=== PATIENT | male | born 1990 | race African-American/Black ===

== ENCOUNTER 2022-12-17 07:19 | Emergency (ER) | payer SELFPAY ==
[2022-12-17 07:28] VITALS: BP 173/109; PULSE 82; RESP 16; TEMP 36.3; O2SAT 95; BMI 27.4
--- NOTE | 2022-12-17 07:36 | CT_ITS ---
The [address] [address] Patient Name: DOMINGUEZ ANDERSON MRN: [id number] date: 1990 Sex: M Assigned Patient Location: ER Current Patient Location: ER Accession/Order Number: [id number] Exam Date: 12/17/2022 07:55 Report Date: 12/17/2022 08:53 At the request of: LINDSEY KUMARI Procedure: CT abdomen pelvis w con EXAM: CT abdomen pelvis w con HISTORY: Umbilical area pain; technologist notes state noticed a lump 3 days ago. COMPARISON: None. TECHNIQUE: Routine CT abdomen/pelvis with intravenous contrast. FINDINGS: Lower chest: Unremarkable. Liver: Lizette's lobe configuration of the liver with the right lobe measuring 18.4 cm in longitudinal dimension. There is a 0.5 cm hypodense lesion posteriorly within the lateral segment of the left lobe of the liver which is too small to further characterize by computed tomography however most commonly is a cyst or a hemangioma. Gallbladder/biliary tree: Unremarkable. Pancreas: There is pancreatic divisum, a variant of normal. The pancreas is otherwise unremarkable. Spleen: Unremarkable. Adrenal glands: Unremarkable. Kidneys: There a few and 0.2 cm nonobstructive calculi within the renal pelvis bilaterally. There are 1.0 cm and 0.9 cm left renal cyst. The left renal vein is retroaortic, a variant of normal. Bowel: There is a moderate amount of stool within the colon. The colon and appendix are unremarkable. There is a small hiatal hernia. The stomach is otherwise unremarkable. The small bowel is normal caliber. The bowel gas pattern is nonobstructive. Inflammation: There is no free air, free fluid or inflammatory reaction. Vasculature: The abdominal aorta and the IVC are unremarkable. Lymphadenopathy: There are no pathologically enlarged lymph nodes within the abdomen/pelvis. Pelvis: Mildly enlarged prostate gland. The urinary bladder is underdistended with circumferential wall thickening which may be related to underdistention or possibly outlet obstruction. Correlation should be made with a urinalysis to exclude the possibility of a cystitis. Osseous: There is a 2.0 x 2.6 x 1.5 cm fat-containing umbilical hernia. There is no osseous abnormality. CT/CT abdomen pelvis w con IMPRESSION: Lizette's configuration of the liver, a variant of normal. There is a 0.5 cm hypodense lesion posteriorly within the lateral segment of the left lobe of the liver which is too small to further characterize by computed tomography however most commonly is a cyst or a hemangioma. Pancreatic divisum, a variant of normal. Few 0.2 cm nonobstructive calculi within the renal pelvis bilaterally. There are 1.0 cm and 0.9 cm left renal cysts. The left renal vein is retroaortic, a normal variant. Nonobstructive bowel gas pattern with a moderate amount of stool within the colon. There is a small hiatal hernia. Mildly enlarged prostate gland. The urinary bladder is underdistended with circumferential wall thickening which may be related to underdistention or possibly outlet obstruction. Correlation should be made with a urinalysis to exclude the possibility of a cystitis. There is a 2.0 x 2.6 x 1.5 cm fat-containing umbilical hernia. Electronically authenticated by: TRI SCHMIDT Date: 12/17/2022 08:53
--- NOTE | 2022-12-17 07:44 | ED.ABDPAIN1 ---
HPI - Abdominal Pain General Chief Complaint: Abdominal Pain Stated Complaint: ABDOMINAL PAIN Time Seen by Provider: 12/17/22 07:33 Source: patient Limitations: no limitations History of Present Illness HPI narrative: 32-year-old male presents for abdominal pain. He states that it's been there for a few days and there is been no trauma. He has not had fever constipation or diarrhea or vomiting. He states that he noticed a bump at his umbilicus that he's never had before. He's never had abdominal surgery. No drainage. Related Data Allergies Allergy/AdvReac Type Severity Reaction Status Date / Time No Known Drug Allergies Allergy Verified 12/17/22 07:32 Review of Systems ROS Narrative A ten point review of systems is negative except as noted above. Exam Narrative Exam Narrative: Nurses note and vital signs reviewed and patient is not hypoxic. General: The patient appears well and in no apparent distress. Patient is resting comfortably on cart. Skin: Warm, dry, no pallor noted. There is no rash noted. Head: Normocephalic, atraumatic Eye: Normal conjunctiva, no drainage Ears, Nose, Mouth, and Throat: oral mucosa is moist. Nares patent. Cardiovascular: Regular Rate and Rhythm Respiratory: Patient is in no distress, no accessory muscle use, lungs are clear to auscultation, no wheezing, rales or rhonchi Back: non-tender GI: nondistended. He has some tenderness adjacent to the umbilicus and to the right of it. there is no erythema or mass or drainage. Musculoskeletal: The patient has no evidence of calf tenderness, no pitting edema, symmetrical pulses noted bilaterally Neurological: A&O, normal speech Psychiatric: Cooperative Constitutional Vital Signs, click to edit/add: Last Vital Signs Temp 97.4 F L 12/17/22 07:28 Pulse 82 12/17/22 07:28 Resp 16 12/17/22 07:28 BP 173/109 H 12/17/22 07:28 Pulse Ox 95 12/17/22 07:28 O2 Del Method Room Air 12/17/22 07:28 Course Vital Signs Vital signs: Vital Signs Temperature 97.4 F L 12/17/22 07:28 Pulse Rate 82 12/17/22 07:28 Respiratory Rate 16 12/17/22 07:28 Blood Pressure 173/109 H 12/17/22 07:28 Pulse Oximetry 95 12/17/22 07:28 Oxygen Delivery Method Room Air 12/17/22 07:28 Temperature 97.4 F L 12/17/22 07:28 Pulse Rate 82 12/17/22 07:28 Respiratory Rate 16 12/17/22 07:28 Blood Pressure 173/109 H 12/17/22 07:28 Pulse Oximetry 95 12/17/22 07:28 Oxygen Delivery Method Room Air 12/17/22 07:28 MDM - Abdominal Pain MDM Narrative Medical decision making narrative: umbilical hernia is identified. He is referred to general surgery. Treatment diagnosis and follow-up were discussed with the patient. Differential Diagnosis Differential diagnosis: Likely abdominal pain, acute appendicitis, constipation, diverticulitis, gastroenteritis and small bowel obstruction Lab Data Attestation: I reviewed the patient's lab results. Labs: Lab Results 12/17/22 Range/Units 07:50 WBC 9.4 (4.0-11.0) 10^3/uL RBC 4.44 L (4.70-6.10) 10^6/uL Hgb 14.6 (14.0-18.0) g/dL Hct 43.8 (42.0-54.0) % MCV 98.6 H (80.0-94.0) fL MCH 32.9 (25.9-34.0) pg MCHC 33.3 (29.9-35.2) g/dL RDW 11.3 (11.0-15.0) % Plt Count 342 (150-450) 10^3/uL MPV 9.3 L (9.5-13.5) fL Neut % (Auto) 66.1 (43.0-75.0) % Lymph % (Auto) 25.9 (20.5-60.0) % [place] % (Auto) 6.6 (1.7-12.0) % Eos % (Auto) 1.0 (0.9-7.0) % Baso % (Auto) 0.3 (0.2-2.0) % Neut # (Auto) 6.2 (1.4-6.5) 10^3/uL Lymph # (Auto) 2.4 (1.2-3.8) 10^3/uL [place] # (Auto) 0.6 (0.3-0.8) 10^3/uL Eos # (Auto) 0.1 (0.0-0.7) 10^3/uL Baso # (Auto) 0.0 (0.0-0.1) 10^3/uL Abs Immat Gran (auto) 0.01 (0.00-0.03) 10^3/uL Imm/Tot Granulo (auto) 0.1 (0.0-0.5) % Sodium 138 (136-145) mmol/L Potassium 3.9 (3.5-5.1) mmol/L Chloride 102 (98-107) mmol/L Carbon Dioxide 28.8 (21.0-32.0) mmol/L Anion Gap 11.1 BUN 17.0 (7.0-18.0) mg/dL Creatinine 0.88 (0.70-1.30) mg/dL Est GFR ( Amer) >60 (>=60) Est GFR (Non-Af Amer) >60 (>=60) BUN/Creatinine Ratio 19.3 Glucose 162 H (74-106) mg/dL Calcium 8.6 (8.5-10.1) mg/dL Imaging Data CT scan - abdomen: Radiologist's impression: Procedure: CT abdomen pelvis w con EXAM: CT abdomen pelvis w con HISTORY: Umbilical area pain; technologist notes state noticed a lump 3 days ago. COMPARISON: None. TECHNIQUE: Routine CT abdomen/pelvis with intravenous contrast. FINDINGS: Lower chest: Unremarkable. Liver: Lizette's lobe configuration of the liver with the right lobe measuring 18.4 cm in longitudinal dimension. There is a 0.5 cm hypodense lesion posteriorly within the lateral segment of the left lobe of the liver which is too small to further characterize by computed tomography however most commonly is a cyst or a hemangioma. Gallbladder/biliary tree: Unremarkable. Pancreas: There is pancreatic divisum, a variant of normal. The pancreas is otherwise unremarkable. Spleen: Unremarkable. Adrenal glands: Unremarkable. Kidneys: There a few and 0.2 cm nonobstructive calculi within the renal pelvis bilaterally. There are 1.0 cm and 0.9 cm left renal cyst. The left renal vein is retroaortic, a variant of normal. Bowel: There is a moderate amount of stool within the colon. The colon and appendix are unremarkable. There is a small hiatal hernia. The stomach is otherwise unremarkable. The small bowel is normal caliber. The bowel gas pattern is nonobstructive. Inflammation: There is no free air, free fluid or inflammatory reaction. Vasculature: The abdominal aorta and the IVC are unremarkable. Lymphadenopathy: There are no pathologically enlarged lymph nodes within the abdomen/pelvis. Pelvis: Mildly enlarged prostate gland. The urinary bladder is underdistended with circumferential wall thickening which may be related to underdistention or possibly outlet obstruction. Correlation should be made with a urinalysis to exclude the possibility of a cystitis. Osseous: There is a 2.0 x 2.6 x 1.5 cm fat-containing umbilical hernia. There is no osseous abnormality. IMPRESSION: Lizette's configuration of the liver, a variant of normal. There is a 0.5 cm hypodense lesion posteriorly within the lateral segment of the left lobe of the liver which is too small to further characterize by computed tomography however most commonly is a cyst or a hemangioma. Pancreatic divisum, a variant of normal. Few 0.2 cm nonobstructive calculi within the renal pelvis bilaterally. There are 1.0 cm and 0.9 cm left renal cysts. The left renal vein is retroaortic, a normal variant. Nonobstructive bowel gas pattern with a moderate amount of stool within the colon. There is a small hiatal hernia. Mildly enlarged prostate gland. The urinary bladder is underdistended with circumferential wall thickening which may be related to underdistention or possibly outlet obstruction. Correlation should be made with a urinalysis to exclude the possibility of a cystitis. There is a 2.0 x 2.6 x 1.5 cm fat-containing umbilical hernia. Electronically authenticated by: TRI SCHMIDT Date: 12/17/2022 08:53 Discharge Plan Discharge Chief Complaint: Abdominal Pain Clinical Impression: Hernia, umbilical Patient Disposition: Home, Self-Care Time of Disposition Decision: 09:09 Condition: Good Mode of Transportation: Private Vehicle Instructions: Umbilical Hernia (ED) Additional Instructions: Follow-up with Dr. Morrison Stand Alone Forms: Portal Instructions Referrals: Physician,Non-Staff, MD [Primary Care Provider] - 1 week
[2022-12-17 08:02] LABS: Basophils Percent Auto 0.3 % (0.2-2.0); Eosinophils Absolute Auto 0.1 10^3/uL (0.0-0.7); Hematocrit 43.8 % (42.0-54.0); Hemoglobin 14.6 g/dL (14.0-18.0); Immature Granulocytes Abs Auto 0.01 10^3/uL (0.00-0.03); Immature Granulocytes Pct Auto 0.1 % (0.0-0.5); Lymphocytes Absolute Auto 2.4 10^3/uL (1.2-3.8); Lymphocytes Percent Auto 25.9 % (20.5-60.0); Mean Corpuscular HGB Conc 33.3 g/dL (29.9-35.2); Mean Corpuscular Hemoglobin 32.9 pg (25.9-34.0); Mean Corpuscular Volume 98.6 fL (80.0-94.0); Mean Platelet Volume 9.3 fL (9.5-13.5); Monocytes Absolute Auto 0.6 10^3/uL (0.3-0.8); Monocytes Percent Auto 6.6 % (1.7-12.0); Neutrophils Absolute Auto 6.2 10^3/uL (1.4-6.5); Neutrophils Percent Auto 66.1 % (43.0-75.0); Platelet Count 342 10^3/uL (150-450); Red Blood Count 4.44 10^6/uL (4.70-6.10); Red Cell Distribution Width 11.3 % (11.0-15.0); White Blood Count 9.4 10^3/uL (4.0-11.0)
[2022-12-17 08:24] LABS: Anion Gap 11.1; BUN Creatinine Ratio 19.3; Calcium 8.6 mg/dL (8.5-10.1); Carbon Dioxide 28.8 mmol/L (21.0-32.0); Chloride 102 mmol/L (98-107); Estimated GFR (African America >60 (>=60); Estimated GFR (Non-African Ame >60 (>=60); Glucose 162 mg/dL (74-106); Potassium 3.9 mmol/L (3.5-5.1); Sodium 138 mmol/L (136-145)
== END 2022-12-17 09:17 | disposition home or self-care (01) ==
PROVIDERS: Emergency Provider Emergency Medicine
DX: K42.9 Umbilical hernia without obstruction or gangrene (principal)
CPT/HCPCS: 36415; 74177; 80048; 85025; 99284; Q9967

== ENCOUNTER 2023-04-30 10:53 | Emergency (ER) | payer MEDICAID, SELFPAY ==
[2023-04-30 10:56] VITALS: BP 160/118; PULSE 76; RESP 18; TEMP 36.8; O2SAT 97; BMI 22.8
[2023-04-30 11:43] LABS: SARS-CoV-2 Ag NEGATIVE (NEGATIVE)
[2023-04-30 11:44] VITALS: BP 166/100; PULSE 78; RESP 18; O2SAT 98
[2023-04-30 11:44] LABS: Internal Control Within Normal Limits; Strep A Antigen Screen Negative
--- NOTE | 2023-04-30 12:21 | ED_ITS ---
HPI - General Adult General Chief complaint: Upper Respiratory Infection Stated complaint: SORE THROAT Time Seen by Provider: 04/30/23 11:52 Source: patient Mode of arrival: walk-in History of Present Illness HPI narrative: Patient is a 32-year-old male who is presenting to the ER today with chief complaint of sore throat, sinus headache, sinus congestion, and not feeling well since last evening. 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 Patient did not go to work last night. Patient came into the ER today. Patient feels much better today after resting and sleeping last night. Patient was asking nursing staff for work note. Patient has no chest pain, shortness of breath, abdominal pain, nausea, vomiting, or any other significant complaints. All systems are negative except as noted/marked. All systems reviewed and otherwise negative. Nurses note and vital signs reviewed and patient is not hypoxic. General: The patient appears well and in no apparent distress. Patient is resting comfortably on cart. Patient is not toxic, lethargic, or listless Skin: Warm, dry, no pallor noted. There is no rash noted. No petechiae, purpura. Head: Normocephalic, atraumatic, patient has no bilateral cervical lymphadenopathy Eye: Normal conjunctiva, no drainage, EOMI. PERRL Ears, Nose, Mouth, and Throat: oral mucosa is moist. No posterior pharyngeal erythema, petechiae, exudate. Mild sinus congestion. No unilateral swelling. No acute pathology. No trismus. Nares patent. Mouth without vesicles. Cardiovascular: Regular Rate and Rhythm, no murmur, gallop, rub Respiratory: Patient is in no distress, no accessory muscle use, lungs are clear to auscultation, no wheezing, rales or rhonchi Back: non-tender, GI: no tenderness to palpation, Musculoskeletal: Patient has full range of motion of all of the extremities, no motor, sensory, or focal neurological deficits Neurological: A&O x4, normal speech Psychiatric: Cooperative Related Data Home Medications Medication Instructions Recorded Confirmed No Known Home Medications 04/30/23 04/30/23 Allergies Allergy/AdvReac Type Severity Reaction Status Date / Time No Known Drug Allergies Allergy Verified 12/17/22 07:32 Exam Constitutional Vital Signs, click to edit/add: Last Vital Signs Temp 98.2 F 04/30/23 10:56 Pulse 78 04/30/23 11:44 Resp 18 04/30/23 11:44 BP 166/100 H 04/30/23 11:44 Pulse Ox 98 04/30/23 11:44 O2 Del Method Room Air 04/30/23 10:56 Course Vital Signs Vital signs: Vital Signs Temperature 98.2 F 04/30/23 10:56 Pulse Rate 76 04/30/23 10:56 Respiratory Rate 18 04/30/23 10:56 Blood Pressure 160/118 H 04/30/23 10:56 Pulse Oximetry 97 04/30/23 10:56 Oxygen Delivery Method Room Air 04/30/23 10:56 Temperature 98.2 F 04/30/23 10:56 Pulse Rate 78 04/30/23 11:44 Respiratory Rate 18 04/30/23 11:44 Blood Pressure 166/100 H 04/30/23 11:44 Pulse Oximetry 98 04/30/23 11:44 Oxygen Delivery Method Room Air 04/30/23 10:56 Medical Decision Making MDM Narrative Medical decision making narrative: Patient rapid strep was negative. Patient states he feels much better today than he did yesterday. Patient has evidence of sinus congestion. Education on discharge paperwork was done along at bedside on treating symptoms at home. Patient is using a nasal spray. Patient is using allergy medication as well. Patient looks well. No questions at discharge. Lab Data Labs: Lab Results 04/30/23 Range/Units 11:07 SARS-CoV-2 Ag (CV2AG) Negative (NEGATIVE) Streptococcus Screen Negative Discharge Plan Discharge Chief Complaint: Upper Respiratory Infection Clinical Impression: Sinus congestion, Sore throat Patient Disposition: Home, Self-Care Condition: Fair Prescriptions / Home Meds: No Action No Known Home Medications Instructions: Pharyngitis (ED), Cold Symptoms (ED), How to Use Nasal [place] (ED) Additional Instructions: Increase fluids at home, Gatorade, Powerade, or water. Alternate using DayQuil, NyQuil, and Flonase. At Mucinex as well as needed. Alternate Tylenol and Motrin every 4 hours to help with fever control, body aches or joint pain. Use [id number] vitamin C, vitamin D3, and zinc to help fight infection and help with her immune system. Stand Alone Forms: Work/School Release, Portal Instructions Referrals: Physician,Non-Staff, MD [Primary Care Provider] - 1 week
== END 2023-04-30 12:26 | disposition home or self-care (01) ==
PROVIDERS: Emergency Provider Emergency Medicine
DX: J02.9 Acute pharyngitis, unspecified (principal); R09.81 Nasal congestion; Z20.822 Contact with and (suspected) exposure to COVID-19
CPT/HCPCS: 87070; 87811; 87880; 99283

== ENCOUNTER 2024-08-21 11:48 | Emergency (ER) | payer MEDICAID, SELFPAY ==
[2024-08-21 11:52] VITALS: PULSE 77; TEMP 37.2; O2SAT 96; BMI 24.3
--- OUTSIDE RECORDS SUMMARY | 2024-08-21 11:58 | XMS_ITS | Clinical Summary ---
Author Organization [facility] Address [id number] [address] [place] [address] Care Team Providers Care Audit Control Clerk Name Role Phone Ricki Minor PA-C Primary Care Provider Allergies No known active allergies Medications ibuprofen (ADVIL,MOTRIN) 200 mg tablet Take 1 tablet (200 mg total) by mouth every 6 (six) hours as needed for pain. 400mg as needed Active meloxicam (MOBIC) 15 mg tablet Take 1 tablet (15 mg total) by mouth in the morning. 30 tablet 1 06/16/2022 Active Active Problems Problem Noted Date Diagnosed Date Lumbar spondylosis 06/16/2022 Cervical spondylosis without myelopathy 06/17/19 23 Immunizations Immunization Administration Dates Next Due Tdap 12/20/2021 Social History Tobacco Use Types Packs/Day Years Used Date Smoking Tobacco: Every Day Cigarettes Smokeless Tobacco: Never Tobacco Cessation:Ready to Q uit: Not Asked; Counseling Given: Not Answered Alcohol Use Standard Drinks/Week Comments Yes 0 (1 standard drink = 0.6 oz pur e alcohol) socially Childcare Answer Date Recorded Childcare Unknown 08/29/2018 Employment Answer Date Recorded Employment Unknown 08/29/2018 Hunger Screening Answer Date Recorded Within the past 12 months we worried whether our food would run out before we got money to buy more. Never True 06/16/2022 Within the past 12 months th e food we bought just didn't last and we didn't have money to get more. Never True 06/16/2022 Purpose - Life Answer Date Recorded Purpose and direction in life Unknown Sex and Gender Information Value Date Recorded Sex Assigned at Not on file Legal Sex Male 2:54 PM EDT Gender Identity Not on file Sexual Orientation Not on file Last Filed Vital Signs Vital Sign Reading Time Taken Comments Blood Pressure 147/108 06/16/2022 12:11 PM EDT Pulse 80 06/16/2022 12:11 PM EDT Temperature 36.8 C (98.3 F) 12/20/2021 1:46 AM EDT Respiratory Rate 18 06/16/2022 12:11 PM EDT Oxygen Saturation 98% 06/16/2022 12:11 PM EDT Inhaled Oxygen Concentration - - Weight 76.7 kg (169 lb) 06/16/2022 12:11 PM EDT Height 170.2 cm (5' 7 ) 06/16/2022 12:11 PM EDT Body Mass Index 26.47 06/16/2022 12:11 PM EDT Plan of Treatment Health Maintenance Due Date Last Done Comments Depression Screening 2000 Tobacco Screening 2000 Adult BMI Screening 06/17/2023 06/16/2022 Influenza Vaccine 11/20/2024 DTaP,Tdap and Td Vaccines (6 - Td or Tdap) 12/21/2031 12/20/2021, 09/30/1993, 12/19/1990, Additional history exists Medical Devices Not on file Insurance [address] [place] [address] [facility] MEDICAID [employer] INSURANCE Care Teams Audit Control Clerk Relationship Specialty Start Date End Date Rciki Minor PA-C [address] [place] [id number] PCP - General 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
[2024-08-21 11:59] VITALS: BP 164/110
[2024-08-21 12:14] LABS: Basophils Percent Auto 0.3 % (0.2-2.0); Eosinophils Percent Auto 0.4 % (0.9-7.0); Hematocrit 46.9 % (42.0-54.0); Hemoglobin 15.4 g/dL (14.0-18.0); Immature Granulocytes Abs Auto 0.01 10^3/uL (0.00-0.03); Immature Granulocytes Pct Auto 0.1 % (0.0-0.5); Lymphocytes Absolute Auto 2.2 10^3/uL (1.2-3.8); Lymphocytes Percent Auto 24.9 % (20.5-60.0); Mean Corpuscular HGB Conc 32.8 g/dL (29.9-35.2); Mean Corpuscular Hemoglobin 31.8 pg (25.9-34.0); Mean Corpuscular Volume 96.9 fL (80.0-94.0); Mean Platelet Volume 9.2 fL (9.5-13.5); Monocytes Absolute Auto 0.8 10^3/uL (0.3-0.8); Monocytes Percent Auto 9.1 % (1.7-12.0); Neutrophils Absolute Auto 5.9 10^3/uL (1.4-6.5); Neutrophils Percent Auto 65.2 % (43.0-75.0); Platelet Count 401 10^3/uL (150-450); Red Blood Count 4.84 10^6/uL (4.70-6.10); Red Cell Distribution Width 11.7 % (11.0-15.0)
[2024-08-21] MEDS: 0.9 % SODIUM CHLORIDE 1,000 ML 1000 ML IV (12:18)
[2024-08-21] MEDS: ONDANSETRON PF 4 MG/2 ML VIAL IV (12:19)
[2024-08-21] MEDS: FAMOTIDINE/PF 20 MG/2 ML VIAL IV (12:20)
[2024-08-21] MEDS: KETOROLAC TROMETHAMINE 30 MG/ML VIAL 15 MG IVP (12:21)
--- NOTE | 2024-08-21 12:26 | ED.ABDPAIN1 ---
HPI - Abdominal Pain General Chief Complaint: Abdominal Pain Stated Complaint: ABDOMINAL PAIN Time Seen by Provider: 08/21/24 12:01 Source: patient Mode of arrival: walk-in History of Present Illness HPI narrative: The patient is 33-year-old male is coming to the ER with nausea vomiting and diarrhea for the last 3 days, he mentioned that he have a history of umbilical hernia surgery few years ago, patient pointing to the periumbilical area as he points to where the pain is, he also has been having some diarrhea with no blood in stool at any time There is no fever no chills no exposure to anybody with similar symptoms Related Data Previous Rx's ?Medication ?Instructions ?Recorded ondansetron 4 mg disintegrating 4 mg PO Q8H PRN nausea and 08/21/24 tablet vomiting 48 hours #10 tabs Allergies Allergy/AdvReac Type Severity Reaction Status Date / Time No Known Drug Allergies Allergy Verified 12/17/22 07:32 Review of Systems ROS Status of ROS 10 or more systems reviewed and unremarkable except as noted in history and below [facility] Medical History (Updated 08/21/24 @ 14:39 by Fay Ravi MD) Hypertension ?I10 - Essential (primary) hypertension (ICD-10) Social History Little interest or pleasure in doing things: not at all Feeling down, depressed, or hopeless: not at all Exam Narrative Exam Narrative: Nurses notes and vital signs reviewed and patient is not hypoxic. General: Well-appearing and in no apparent distress. Skin: Warm, dry, no pallor noted. No rash. Head: Normocephalic, atraumatic. Neck: Supple, non-tender. Eye: Pupils are equal, round and EOMI. No scleral icterus. Ears, Nose, Mouth, and Throat: TM are clear, no nasal mucosal hypertrophy. Oral mucosa is moist, no posterior oropharynx erythema, uvula is mid-line Cardiovascular: Regular Rate and Rhythm without murmur, gallop or rub. Respiratory: No accessory muscle use or respiratory distress. Lungs are clear to auscultation, no wheezing, rales or rhonchi Chest Wall: no tenderness Back: No midline thoracic or lumbar vertebral tenderness. No CVA tenderness Musculoskeletal: normal ROM, no calf or popliteal tenderness, no lower extremity edema/swelling GI: Abdomen is soft, non-distended. Normal bowel sounds. No masses appreciated. Subjective tenderness to the periumbilical area with no hernia detected Neurological: A&O x4. No cranial nerve dysfunction observed. No truncal ataxia. Moves all extremities. Sensation intact. Psychiatric: Cooperative and interactive. Normal mood and affect. Constitutional Vital Signs, click to edit/add: Last Vital Signs Temp 99.0 F 08/21/24 11:52 Pulse 77 08/21/24 11:52 Resp 18 08/21/24 14:46 BP 154/98 H 08/21/24 14:46 Pulse Ox 98 08/21/24 14:46 O2 Del Method Room Air 08/21/24 14:46 Course Vital Signs Vital signs: Vital Signs Temperature 99.0 F 08/21/24 11:52 Pulse Rate 77 08/21/24 11:52 Respiratory Rate 18 08/21/24 11:52 Pulse Oximetry 96 08/21/24 11:52 Oxygen Delivery Method Room Air 08/21/24 11:52 Temperature 99.0 F 08/21/24 11:52 Pulse Rate 77 08/21/24 11:52 Respiratory Rate 18 08/21/24 14:46 Blood Pressure 154/98 H 08/21/24 14:46 Pulse Oximetry 98 08/21/24 14:46 Oxygen Delivery Method Room Air 08/21/24 14:46 MDM - Abdominal Pain MDM Narrative Medical decision making narrative: The patient CBC and chemistry showed no acute significant pathology except for some elevation in the lipase and nonspecific change in the bilirubin of 1.1 The patient picture does not correlate with possible biliary disease specially with the patient having lower abdominal pain The patient CAT scan of the abdomen shows no acute pathology he does have bilateral nonobstructive kidney stone that not related to this presentation The patient informed of the kidney stone making sure that he is going to monitor for any new symptoms Patient was feeling better after being treated initially with IV fluids Zofran and Toradol he was discharged home with Zofran and supportive care instructed Current clinical impression is gastroenteritis The patient is to follow up with primary care physician in next 2-3 days or to return to the emergency department should any of the signs or symptoms worsen or new symptoms develop. The patient agrees with the following Diagnosis and Treatment plan and the patient will be discharged home. Lab Data Labs: Lab Results 08/21/24 Range/Units 12:00 WBC 9.0 (4.0-11.0) 10^3/uL RBC 4.84 (4.70-6.10) 10^6/uL Hgb 15.4 (14.0-18.0) g/dL Hct 46.9 (42.0-54.0) % MCV 96.9 H (80.0-94.0) fL MCH 31.8 (25.9-34.0) pg MCHC 32.8 (29.9-35.2) g/dL RDW 11.7 (11.0-15.0) % Plt Count 401 (150-450) 10^3/uL MPV 9.2 L (9.5-13.5) fL Neut % (Auto) 65.2 (43.0-75.0) % Lymph % (Auto) 24.9 (20.5-60.0) % [place] % (Auto) 9.1 (1.7-12.0) % Eos % (Auto) 0.4 L (0.9-7.0) % Baso % (Auto) 0.3 (0.2-2.0) % Neut # (Auto) 5.9 (1.4-6.5) 10^3/uL Lymph # (Auto) 2.2 (1.2-3.8) 10^3/uL [place] # (Auto) 0.8 (0.3-0.8) 10^3/uL Eos # (Auto) 0.0 (0.0-0.7) 10^3/uL Baso # (Auto) 0.0 (0.0-0.1) 10^3/uL Abs Immat Gran (auto) 0.01 (0.00-0.03) 10^3/uL Imm/Tot Granulo (auto) 0.1 (0.0-0.5) % Sodium 142 (136-145) mmol/L Potassium 3.9 (3.5-5.1) mmol/L Chloride 101 (98-107) mmol/L Carbon Dioxide 27.5 (21.0-32.0) mmol/L Anion Gap 17.4 BUN 9.0 (7.0-18.0) mg/dL Creatinine 0.94 (0.70-1.30) mg/dL Est GFR ( Amer) >60 (>=60 mL/min/1.73m^2) Est GFR (Non-Af Amer) >60 (>=60 mL/min/1.73m^2) BUN/Creatinine Ratio 9.6 Glucose 101 (74-106) mg/dL Calcium 9.2 (8.5-10.1) mg/dL Total Bilirubin 1.1 H (0.2-1.0) mg/dL AST 21 (15-37) U/L ALT 21 (16-63) U/L Alkaline Phosphatase 98 (46-116) U/L Total Protein 7.8 (6.4-8.2) g/dL Albumin 4.2 (3.4-5.0) g/dL Globulin 3.6 g/dL Albumin/Globulin Ratio 1.2 Lipase 100.0 H (16.0-77.0) U/L Discharge Plan Discharge Chief Complaint: Abdominal Pain Clinical Impression: Gastroenteritis Patient Disposition: Home, Self-Care Time of Disposition Decision: 14:38 Condition: Good Prescriptions / Home Meds: New ondansetron 4 mg tablet,disintegrating 4 mg PO Q8H PRN (Reason: nausea and vomiting) 2 Days Qty: 10 0RF Print Language: Nauruan Instructions: Gastroenteritis (DC) Referrals: Physician,Non-Staff, MD [Primary Care Provider] - 1 week
[2024-08-21 12:37] LABS: Alanine Aminotransferase 21 U/L (16-63); Albumin Globulin Ratio 1.2; Albumin Level 4.2 g/dL (3.4-5.0); Alkaline Phosphatase 98 U/L (46-116); Anion Gap 17.4; Aspartate Amino Transferase 21 U/L (15-37); BUN Creatinine Ratio 9.6; Bilirubin Total 1.1 mg/dL (0.2-1.0); Calcium 9.2 mg/dL (8.5-10.1); Carbon Dioxide 27.5 mmol/L (21.0-32.0); Chloride 101 mmol/L (98-107); Estimated GFR (African America >60 (>=60 mL/min/1.73m^2); Estimated GFR (Non-African Ame >60 (>=60 mL/min/1.73m^2); Globulin 3.6 g/dL; Glucose 101 mg/dL (74-106); Potassium 3.9 mmol/L (3.5-5.1); Sodium 142 mmol/L (136-145); Total Protein 7.8 g/dL (6.4-8.2)
--- NOTE | 2024-08-21 12:46 | CT_ITS ---
The [address] [address] Patient Name: DOMINGUEZ ANDERSON MRN: [id number] date: 1990 Sex: M Assigned Patient Location: ER Current Patient Location: ER Accession/Order Number: [id number] Exam Date: 08/21/2024 14:03 Report Date: 08/21/2024 14:08 At the request of: EL ALCANTARA MD Procedure: CT abdomen pelvis wo con CT abdomen pelvis wo con 08/21/2024 1:16 PM SIGNS AND SYMPTOMS: ^abd pain pancreatitis, acute diarrhea TECHNIQUE: Multidetector ct axial images of the abdomen and pelvis were obtained without IV contrast. Multiplanar reformats were performed and reviewed to further define anatomy and possible pathology. CT was performed with one or more of the following dose reduction techniques: Automated exposure control, adjustment of the mA and/or kV according to patient size, or use of iterative reconstruction technique. COMPARISON: 12/17/2022 FINDINGS: Lower Chest: Within normal limits. ABDOMEN: Liver: Within normal limits. Bile Ducts: Normal caliber. Gallbladder: No calcified gallstones. Normal caliber wall. Pancreas: Within normal limits. Spleen: Within normal limits. Adrenals: Within normal limits. Kidneys: Nonobstructing renal stones are present bilaterally measuring up to 4 mm in greatest dimension. No hydronephrosis. Pelvis: Reproductive Organs: No pelvic masses. Ureters: Within normal limits. Bladder: Within normal limits. Bowel: Normal caliber. There is a normal appendix in the right lower quadrant. Nonspecific wall thickening is noted in the small bowel suspicious for enteritis. Mesenteric Lymph Nodes: No enlarged mesenteric lymph nodes. Peritoneum: No ascites or free air, no fluid collection. Vessels: within normal limits Retroperitoneum: Within normal limits. Abdominal Wall: There is a tiny fat-containing periumbilical hernia. Bones: Within normal limits. CT/CT abdomen pelvis wo con IMPRESSION: No bowel obstruction or obstructive uropathy. Nonobstructing renal stones are present bilaterally measuring up to 4 mm in greatest dimension. No hydronephrosis. Nonobstructing renal stones are present bilaterally measuring up to 4 mm in greatest dimension. Impression dictated by: Bladimir Lee M.D. 08/21/2024 2:08 PM Dictation Location: [place] [address] Electronically authenticated by: [id number] Y Date: 08/21/2024 14:08
[2024-08-21 14:46] VITALS: BP 154/98; O2SAT 98
== END 2024-08-21 14:47 | disposition home or self-care (01) ==
PROVIDERS: Emergency Provider Emergency Medicine
DX: K52.9 Noninfective gastroenteritis and colitis, unspecified (principal); N20.0 Calculus of kidney
CPT/HCPCS: 36415; 74176; 80053; 83690; 85025; 96361; 96374; 96375; 99285; J1885; J2405; J3490

== ENCOUNTER 2025-02-19 13:30 | Emergency (ER) | payer SELFPAY ==
[2025-02-19 13:37] VITALS: BP 170/100; PULSE 77; TEMP 36.7; O2SAT 97; BMI 26.6
--- NOTE | 2025-02-19 13:49 | ED_ITS ---
HPI - Dental/Oral General Chief complaint: Dental/Oral Stated complaint: NECK SWELLING DENTAL PAIN Time Seen by Provider: 02/19/25 13:43 Source: patient Mode of arrival: walk-in Limitations: no limitations History of Present Illness HPI Narrative: The patient presented to us with 1 day history of left-sided dental pain mostly in the left upper second molar the patient mentioned that he has not been to the dentist for a while No other complaint no nausea no vomiting no fever Teeth map: 2 1. Related Data Previous Rx's ?Medication ?Instructions ?Recorded amoxicillin 875 mg-potassium 1 tab PO Q12H #14 tabs clavulanate 125 mg tablet ibuprofen 600 mg tablet 600 mg PO TID PRN pain #20 t abs 02/19/25 Allergies Allergy/AdvReac Type Severity Reaction Status Date / Time No Known Drug Allergies Allergy Verified 02/19/25 13:39 Review of Systems 2 ROS0 Status of ROS 10 or more systems reviewed and unremark able except as noted in history and below [facility] Medical History (Updated 02/19/25 @ 13:50 by Fay Ravi MD) Hypertension ?I10 - Essential (primary) hypertension (ICD-10) Social History Little interest or pleasure in doing things: not at all Feeling down, depressed, or hopeless: not at all Exam Narrative Exam Narrative: Nurses notes and vital signs reviewed and patient is not hypoxic. General: Well-appearing and in no apparent distress. Skin: Warm, dry, no pallor noted. No rash. Head: Normocephalic, atraumatic. Neck: Supple, left-sided submandibular lymphadenopathy The patient face; mild left-sided facial swelling mostly at the area of the left upper maxillary area that is mild, no compromise of the airway the patient with patent airway with no enlargement of the tongue and tonsils are normal The patient also have a tenderness from palpation of the tooth #12 and 13 with a gum inflamed Neurological: A&O x4. No cranial nerve dysfunction observed. No truncal ataxia. Moves all extremities. Sensation intact. Psychiatric: Cooperative and interactive. Normal mood and affect. Constitutional Vital Signs, click to edit/add: Last Vital Signs Temp 98.1 F 02/19/25 13:37 Pulse 77 02/19/25 13:37 Resp 14 02/19/25 13:37 BP 170/100 H 02/19/25 13:37 Pulse Ox 97 02/19/25 13:37 O2 Del Method Room Air 02/19/25 13:37 Course Vital Signs Vital signs: Vital Signs Temperature 98.1 F 02/19/25 13:37 Pulse Rate 77 02/19/25 13:37 Respiratory Rate 14 02/19/25 13:37 Blood Pressure 170/100 H 02/19/25 13:37 Pulse Oximetry 97 02/19/25 13:37 Oxygen Delivery Method Room Air 02/19/25 13:37 Temperature 98.1 F 02/19/25 13:37 Pulse Rate 77 02/19/25 13:37 Respiratory Rate 14 02/19/25 13:37 Blood Pressure 170/100 H 02/19/25 13:37 Pulse Oximetry 97 02/19/25 13:37 Oxygen Delivery Method Room Air 02/19/25 13:37 MDM - Dental/Oral MDM Narrative Medical decision making narrative: The patient presented to us with a mild dental swelling and left-sided submandibular lymphadenopathy mostly secondary to infection Patient was started on Augmentin and referred to the dentist as outpatient The patient to follow-up with the primary care within 2 to 3 days and to come back to the ER in case of any worsening of the current symptoms or any new symptoms or concerns Discharge Plan Discharge Chief Complaint: Dental/Oral Clinical Impression: Dental infection Patient Disposition: Home, Self-Care Time of Disposition Decision: 13:50 Condition: Good Prescriptions / Home Meds: New amoxicillin-pot clavulanate 875-125 mg tablet 1 tab PO Q12H Qty: 14 0RF ibuprofen 600 mg tablet 600 mg PO TID PRN (Reason: pain) Qty: 20 0RF Print Language: Uruguayan Instructions: Dental Abscess (ED) Referrals: Physician,Non-Staff, MD [Primary Care Provider] - 1 week
--- OUTSIDE RECORDS SUMMARY | 2025-02-19 14:09 | XMS_ITS | Clinical Summary ---
Author Organization [facility] Address [id number] [place] [address] Care Team Providers Care Expanded Function Dental Assistant Name Role Phone Ricki Minor PA-C Primary Care Provider [phone] Allergies No known active allergies Medications MedicationSigDispense QuantityRefillsLast FilledStart DateEnd DateStatus ibuprofen (ADVIL,MOTRIN) 200 mg tablet Take 1 tablet (200 mg total) by mouth every 6 (six) hours as needed for pain. 400mg as neededActive meloxicam (MOBIC) 15 mg tablet Take 1 tablet (15 mg total) by mouth in the morning. 30 tablet ctive Active Problems ProblemNoted DateDiagnosed DateLumbar mhxmeieyytv27/28/2023ervical spondylosis without nqhhiqjjez72/28/2023 Immunizations ImmunizationAdministration DatesNext CtbAjfx10/01/2022 Social History Tobacco UseTypesPacks/DayYears UsedDateSmoking Tobacco: Every DayCigarettes Smokeless Tobacco: Never Tobacco Cessation:Ready to Q uit: Not Asked; Counseling Given: Not Answered Alcohol UseStandard Drinks/WeekCommentsYes0 (1 standard drink = 0.6 oz pure alcohol)sociallyChildcareAnswerDate WnvytkagMevkflrddVlispqo05/10/2019Employment AnswerDate IwdjhgchPhvfomvxxrIcopyol90/10/2019Hunger ScreeningAnswerDate RecordedWithin the past 12 months we worried whether our food would run out before we got money to buy more.Never True06/16/2022Within the past 12 months the food we bought just didn't last and we didn't have money to get more.Never True06/16/2022urpose - LifeAnswerDate RecordedPurpose and direction in life Jxaqixb0705/01/2020ex and Gender InformationValueDate RecordedSex Assigned at BirthNot on fileLegal JauRsvd8510/23/2014 2:54 PM EDTGender IdentityNot on file Sexual OrientationNot on file Last Filed Vital Signs Vital SignReadingTime TakenCommentsBlood Pnyirkkl063/2421406/16/2022 12:11 PM EDT Sgxsj1779/28/2023 12:11 PM QNJUkpcwbgvpmx82.8 ??C (98.3 ??F)12/20/2021 1:46 AM EDTRespiratory Vski438106/16/2022 12:11 PM EDTOxygen Zhbxabrqrl49%06/16/2022 12:11 PM EDTInhaled Oxygen Concentration--Becxjp70.7 kg (169 lb)06/16/2022 12:11 PM NHNRevnox297.2 cm (5' 7 )06/16/2022 12:11 PM EDTBody Mass Index26.47006/16/2022 12:11 PM EDT Plan of Treatment Health MaintenanceDue DateLast DoneCommentsDepression Ywukczkro78/15/2001Tobacco Mddhriapr55/15/2001Adult BMI Nmsavllbs01/Influenza Vaccine 11/20/2024DTaP,Tdap and Td Vaccines (6 - Td or Tdap), 09/30/1993, 12/19/1990, Additional history exists Medical Devices Not on file Insurance Care Teams Team MemberRelationshipSpecialtyStart DateEnd Ricki Minor PA-C [address] [place] [id number] PCP - GeneralPhysician Assistant06/16/22
== END 2025-02-19 14:35 | disposition home or self-care (01) ==
LOC: ER 14:06
PROVIDERS: Emergency Provider Emergency Medicine
DX: K04.7 Periapical abscess without sinus (principal)
CPT/HCPCS: 99283